=== PATIENT | female | born 1930 | race Caucasian/White ===

== ENCOUNTER 2018-01-18 13:10 | Outpatient (CLI) | payer OTHER, MEDICARE | END 2018-01-18 13:11 | disposition critical access hospital (66) | LOC: EMS 13:10 | PROVIDERS: ATTEND Surgery | DX: R07.81 Pleurodynia (principal); V47.0XXA Car driver injured in collision with fixed or stationary object in nontraffic accident, initial encounter; Y92.009 Unspecified place in unspecified non-institutional (private) residence as the place of occurrence of the external cause | CPT/HCPCS: A0425; A0429 ==

== ENCOUNTER 2018-01-18 13:43 | Emergency (ER) | payer OTHER, MEDICARE ==
[2018-01-18] MEDS ORDERED: TETANUS/DIPHTHERIA/PERTUSSIS 0.5 ML SYRINGE IM ONE (14:02)
[2018-01-18] MEDS ORDERED: ACETAMINOPHEN 325 MG TABLET PO STA (14:02)
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
--- NOTE | 2018-01-18 15:12 | XRAY Report ---
EXAM: LEFT RIB RADIOGRAPHY EXAM DATE: 01/18/2018 02:26 PM. CLINICAL HISTORY: Chest wall inj. COMPARISON: 12/16/2014. TECHNIQUE: 1 view of the chest and 2 views of the ribs. FINDINGS: Bones: No rib fracture identified. Lungs: No focal opacities. No pneumothorax. No pleural effusions. Mediastinum: Heart and mediastinal contours are within normal limits. Other: None. IMPRESSION: No rib fracture identified. [facility] Referring Provider Line: [phone] SITE ID: [id number]
[2018-01-18 15:32] VITALS: BP 187/66
== END 2018-01-18 15:32 | disposition home or self-care (01) ==
LOC: EDUNIT# → ED 13:43
DX: S20.212A Contusion of left front wall of thorax, initial encounter (principal); S61.412A Laceration without foreign body of left hand, initial encounter; S81.811A Laceration without foreign body, right lower leg, initial encounter; V57.5XXA Driver of pick-up truck or van injured in collision with fixed or stationary object in traffic accident, initial encounter; I10 Essential (primary) hypertension; E78.00 Pure hypercholesterolemia, unspecified; Z23 Encounter for immunization
CPT/HCPCS: 71101; 90471; 90715; 99283; A9270

== ENCOUNTER 2018-01-20 16:29 | Outpatient (CLI) | payer MEDICARE, OTHER | END 2018-01-20 16:30 | disposition EMS.NT | LOC: EMS 16:29 | PROVIDERS: ATTEND Surgery | DX: R07.81 Pleurodynia (principal) ==

== ENCOUNTER 2018-01-29 19:44 | Outpatient (CLI) | payer OTHER, MEDICARE | END 2018-01-29 19:45 | disposition critical access hospital (66) | LOC: EMS 19:44 | PROVIDERS: ATTEND Surgery | DX: R53.1 Weakness (principal); R07.81 Pleurodynia; M25.552 Pain in left hip; M25.562 Pain in left knee; R11.10 Vomiting, unspecified | CPT/HCPCS: A0425; A0427 ==

== ENCOUNTER 2018-01-29 20:17 | Inpatient (IN) | payer OTHER, MEDICARE ==
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
[2018-01-29] MEDS ORDERED: SODIUM CHLORIDE 0.9% 1,000 ML IV STA (20:45)
[2018-01-29 20:53] LABS: EOSINOPHILS % (AUTO) 0.2 %; WHITE BLOOD COUNT 12.2 x10^3/uL (4.8-10.8)
[2018-01-29 21:00] LABS: BASOPHILS % (AUTO) 0.8 %; HGB - HEMOGLOBIN 13.3 g/dL (12.0-16.0); MEAN CORPUSCULAR HEMOGLOBIN 30.5 pg (27.0-31.0); MEAN CORPUSCULAR HGB CONC 33.1 g/dL (32.0-36.0); MEAN CORPUSCULAR VOLUME 92.3 fL (81.0-99.0); MEAN PLATELET VOLUME 7.7 fL (7.9-10.8); MONOCYTES % (AUTO) 12.9 %; NEUTROPHILS % (AUTO) 81.1 %; PLT - PLATELET COUNT 259 10^3/uL (130-450); RED BLOOD COUNT 4.37 10^6/uL (4.20-5.40); RED CELL DISTRIBUTION WIDTH 13.7 % (12.0-15.0)
[2018-01-29 21:01] LABS: CALCIUM 8.6 mg/dL (8.5-10.3); CREATININE 0.8 mg/dL (0.4-1.0)
[2018-01-29 21:31] LABS: ABNORMAL LYMPHS % (MANUAL) 0 %
[2018-01-29 21:42] LABS: BAND NEUTROPHILS % (MANUAL) 1 %; DIFFERENTIAL COMMENT MANUAL DIFFERENTIAL; EOSINOPHILS # (MANUAL) 0.1 10^3/uL (0-0.7); LYMPHOCYTES # (MANUAL) 0.9 10^3/uL (1.5-3.5); LYMPHOCYTES % (MANUAL) 7 %; METAMYELOCYTES % (MANUAL) 1 %; MONOCYTES # (MANUAL) 1.2 10^3/uL (0.0-1.0); NEUTROPHILS # (MANUAL) 9.9 10^3/uL (1.5-6.6); NEUTROPHILS % (MANUAL) 80 %; PLATELET ESTIMATE, MANUAL NORMAL (130-450,000) (NORMAL); PLATELET MORPHOLOGY NORMAL APPEARANCE (NORMAL); RBC MORPHOLOGY (MULTIPLE) NORMAL APPEARANCE (NORMAL)
[2018-01-29 21:57] LABS: BILIRUBIN,URINE NEGATIVE (NEGATIVE); GLUCOSE, URINE (UA) NEGATIVE (NEGATIVE); KETONES,URINE (UA) NEGATIVE (NEGATIVE); LEUKOCYTE ESTERASE, URINE NEGATIVE (NEGATIVE); NITRITE,URINE NEGATIVE (NEGATIVE); OCCULT BLOOD,URINE NEGATIVE (NEGATIVE); PROTEIN,URINE TRACE mg/dL (NEGATIVE); UROBILINOGEN,URINE 4 E.U./dL (NORMAL)
[2018-01-29 21:59] LABS: CLARITY,URINE CLEAR (CLEAR)
--- NOTE | 2018-01-29 22:13 | XRAY Report ---
EXAM: CHEST RADIOGRAPHY EXAM DATE: 01/29/2018 09:28 PM. CLINICAL HISTORY: Recent rib fractures; worsening pain, dyspnea. COMPARISON: 12/16/2014 chest x-ray. TECHNIQUE: 2 views. FINDINGS: Lungs/Pleura: No focal opacities evident. No pleural effusion. No pneumothorax. Normal volumes. Mediastinum: Heart and mediastinal contours are unremarkable. Other: None. IMPRESSION: Normal 2-view chest radiography. [facility] Referring Provider Line: [phone] SITE ID: [id number]
--- NOTE | 2018-01-29 22:13 | XRAY Preliminary Report ---
Exam: XR CHEST 2 VIEW X-RAY IMPRESSION: Normal 2-view chest radiography. [facility] SITE ID: [id number]
--- NOTE | 2018-01-29 22:15 | XRAY Preliminary Report ---
Exam: XR KNEE 4 VIEW LT IMPRESSION: 1. No left knee fracture. 2. Advanced osteoarthritis. 3. Joint effusion. [facility] SITE ID: [id number]
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
[2018-01-30] MEDS ORDERED: ONDANSETRON 4 MG/2 ML VIAL IVP PRN (01:02)
[2018-01-30] MEDS ORDERED: SODIUM CHLORIDE FLUSH 0.9% 10 ML SYRINGE IVP PRN (01:02)
[2018-01-30] MEDS ORDERED: DEXTROSE 5%-0.9% NACL 1,000 ML IV SCH (02:00)
[2018-01-30] MEDS ORDERED: hydrALAZINE INJ 20 MG/ML VIAL IVP ONE (03:19)
[2018-01-30] MEDS: DEXTROSE 5%-0.9% NACL 1,000 ML IV SCH (04:13)
[2018-01-30 04:15] LABS: BASOPHILS # (AUTO) 0.1 10^3/uL (0.0-0.1); BASOPHILS % (AUTO) 0.7 %; EOSINOPHILS # (AUTO) 0.1 10^3/uL (0.0-0.7); EOSINOPHILS % (AUTO) 0.9 %; HGB - HEMOGLOBIN 13.8 g/dL (12.0-16.0); LYMPHOCYTES # (AUTO) 0.7 10^3/uL (1.5-3.5); MEAN CORPUSCULAR HEMOGLOBIN 31.5 pg (27.0-31.0); MEAN CORPUSCULAR VOLUME 92.6 fL (81.0-99.0); MEAN PLATELET VOLUME 7.4 fL (7.9-10.8); MONOCYTES # (AUTO) 1.5 10^3/uL (0.0-1.0); MONOCYTES % (AUTO) 13.1 %; NEUTROPHILS % (AUTO) 79.3 %; PLT - PLATELET COUNT 227 10^3/uL (130-450); RED BLOOD COUNT 4.39 10^6/uL (4.20-5.40); RED CELL DISTRIBUTION WIDTH 13.7 % (12.0-15.0); WHITE BLOOD COUNT 11.4 x10^3/uL (4.8-10.8)
[2018-01-30 04:28] LABS: ALBUMIN/GLOBULIN RATIO 0.8 (1.0-2.2); BILIRUBIN,TOTAL 1.1 mg/dL (0.2-1.0); CALCIUM 8.6 mg/dL (8.5-10.3); CREATININE 0.6 mg/dL (0.4-1.0); TOTAL PROTEIN 6.9 g/dL (6.7-8.2)
[2018-01-30] MEDS: amLODIPine 5 MG TABLET PO SCH ×2 (04:48→08:48)
[2018-01-30] MEDS: HYDROmorphone 0.5 MG/0.5 ML SYRINGE IVP PRN ×2 (07:33→11:30)
[2018-01-30] MEDS: IPRATROPIUM/ALBUTEROL 3 ML NEB INH SCH ×2 (07:44→19:58)
[2018-01-30] MEDS: ACETAMINOPHEN 325 MG TABLET PO PRN ×2 (08:49→20:21)
[2018-01-30] MEDS: FAMOTIDINE 20 MG TABLET PO SCH (08:49)
[2018-01-30] MEDS: ASPIRIN EC 81 MG TABLET PO SCH (08:50)
[2018-01-30] MEDS: traMADol 50 MG TABLET PO PRN ×2 (08:50→20:19)
[2018-01-30] MEDS: POLYETHYLENE GLYCOL 3350 17 GM PACKET PO SCH (08:50)
[2018-01-30] MEDS ORDERED: LOSARTAN 50 MG TABLET PO SCH (09:00)
[2018-01-30] MEDS ORDERED: NON FORMULARY MED (Losartan Potassium [Losartan Potassium] 25 MG) PO SCH (09:00)
[2018-01-30] MEDS ORDERED: SERTRALINE 50 MG TABLET PO SCH (09:00)
[2018-01-30] MEDS ORDERED: AMLODIPINE BESYLATE PO SCH (09:00)
[2018-01-30] MEDS ORDERED: CARISOPRODOL PO SCH (09:00)
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
[2018-01-30] MEDS: METOPROLOL SUCCINATE 50 MG TABLET PO SCH (09:09)
[2018-01-30] MEDS: SODIUM CHLORIDE FLUSH 0.9% 10 ML SYRINGE IVP SCH ×2 (09:11→19:28)
[2018-01-30] MEDS ORDERED: NITROGLYCERIN SL 0.4 MG TABLET SL PRN (10:58)
[2018-01-30] MEDS ORDERED: ALBUTEROL NEB 2.5 MG/3 ML INH PRN (10:58)
[2018-01-30] MEDS: SODIUM CHLORIDE 1 GM TABLET PO SCH (17:48)
[2018-01-30] MEDS ORDERED: ATORVASTATIN 10 MG TABLET PO SCH (21:00)
[2018-01-30] MEDS ORDERED: MONTELUKAST 10 MG TABLET PO SCH (21:00)
[2018-01-31] MEDS: DEXTROSE 5%-0.9% NACL 1,000 ML IV SCH (00:04)
[2018-01-31] MEDS: SODIUM CHLORIDE FLUSH 0.9% 10 ML SYRINGE IVP SCH ×2 (00:06→08:50)
[2018-01-31] MEDS: IPRATROPIUM/ALBUTEROL 3 ML NEB INH SCH ×2 (00:06→10:30)
[2018-01-31] MEDS: ACETAMINOPHEN 325 MG TABLET PO PRN (05:14)
[2018-01-31 08:27] VITALS: BP 169/66
[2018-01-31] MEDS ORDERED: HYDROmorphone 2 MG TABLET PO PRN (08:47)
[2018-01-31] MEDS: FAMOTIDINE 20 MG TABLET PO SCH (08:49)
[2018-01-31] MEDS: amLODIPine 5 MG TABLET PO SCH (08:49)
[2018-01-31] MEDS: METOPROLOL SUCCINATE 50 MG TABLET PO SCH (08:49)
[2018-01-31] MEDS: ASPIRIN EC 81 MG TABLET PO SCH (08:49)
[2018-01-31] MEDS: SODIUM CHLORIDE 1 GM TABLET PO SCH (08:50)
[2018-01-31] MEDS: POLYETHYLENE GLYCOL 3350 17 GM PACKET PO SCH (08:51)
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
[2018-01-31] MEDS ORDERED: LORazepam 2 MG/ML VIAL IVP SCH (14:04)
[2018-01-31] MEDS ORDERED: LORazepam 0.5 MG TABLET PO STA (14:45)
== END 2018-01-31 16:00 | disposition home health service (06) | DRG 948 ==
LOC: ED 20:17 → MS2 01-30 01:02
PROVIDERS: ADMIT Internal Medicine; ATTEND Internal Medicine
DX: G89.11 Acute pain due to trauma (principal); S22.42XA Multiple fractures of ribs, left side, initial encounter for closed fracture; J98.11 Atelectasis; E87.1 Hypo-osmolality and hyponatremia; R09.02 Hypoxemia; E78.5 Hyperlipidemia, unspecified; I10 Essential (primary) hypertension; K21.9 Gastro-esophageal reflux disease without esophagitis; Z96.659 Presence of unspecified artificial knee joint; R94.6 Abnormal results of thyroid function studies; R50.9 Fever, unspecified; V89.0XXA Person injured in unspecified motor-vehicle accident, nontraffic, initial encounter; Y92.008 Other place in unspecified non-institutional (private) residence as the place of occurrence of the external cause; Z79.82 Long term (current) use of aspirin; Z79.899 Other long term (current) drug therapy
CPT/HCPCS: 36415; 71046; 80048; 80053; 81001; 81003; 85025; 87040; 87086; 94640; 96360; 99284

== ENCOUNTER 2018-01-31 16:22 | Outpatient (CLI) | payer OTHER, MEDICARE | END 2018-01-31 16:23 | disposition home or self-care (01) | LOC: EMS 16:22 | PROVIDERS: ATTEND Surgery | DX: S22.42XA Multiple fractures of ribs, left side, initial encounter for closed fracture (principal); S83.005A Unspecified dislocation of left patella, initial encounter; R53.1 Weakness; V47.0XXA Car driver injured in collision with fixed or stationary object in nontraffic accident, initial encounter | CPT/HCPCS: A0425; A0428 ==

== ENCOUNTER 2018-03-23 09:24 | Outpatient (CLI) | payer OTHER, MEDICARE ==
--- NOTE | 2018-03-23 10:33 | Ultrasound Report ---
Procedure Date: 03/23/2018 Accession Number: [id number] / [id number] Procedure: US - Head or Neck Soft Tissue CPT Code: FULL RESULT: EXAM: Head or Neck Soft Tissue DATE: 03/23/2018 10:18 AM CLINICAL HISTORY: LUNG NODULE,THYROID NODULE COMPARISON: None. TECHNIQUE: Real time sonographic imaging of the thyroid was performed by the human resources advisor. Multiple sales representative canvas products static images were saved for review. FINDINGS: THYROID GLAND: Right Lobe: 4.0 x 1.5 x 1.7 cm. Heterogeneous echotexture.. Right Lobe Nodules: Numerous tiny cysts as well as a 1.7 x 1.2 x 1.9 cm cystic and solid nodule and a simple cyst measuring up to 0.8 cm. Left Lobe: 4.1 x 1.3 x 1.0 cm. Heterogeneous echotexture.. Left Lobe Nodules: 0.9 cm complex cystic and solid nodule. Isthmus: 0.4 cm AP. Isthmic Nodules: None. LYMPH NODES: No adenopathy demonstrated in the central or lateral compartment. OTHER: Vascularity of the thyroid gland by color Doppler is within normal limits.. IMPRESSION: 1. Heterogeneous normal-sized thyroid gland with subjectively normal vasculature. 2. The largest and most suspicious nodule measuring up to 1.9 cm in the right lobe of the thyroid represents a low suspicion by size and very low suspicion by sonographic features. Management recommendation is fine-needle aspiration. Management recommendations are based on 2015 [place] [employer] Management Guidelines for Adult Patients with Thyroid Nodules and Differentiated Thyroid Cancer. RADIA
== END 2018-03-23 09:25 | disposition home or self-care (01) ==
LOC: DI 09:24
PROVIDERS: ATTEND Internal Medicine
DX: E04.1 Nontoxic single thyroid nodule (principal); R91.1 Solitary pulmonary nodule
CPT/HCPCS: 76536

== ENCOUNTER 2018-03-27 08:00 | Outpatient (CLI) | payer OTHER, MEDICARE ==
[2018-03-27 19:12] LABS: CALCIUM 9.1 mg/dL (8.5-10.3); CREATININE 0.8 mg/dL (0.4-1.0)
== END 2018-03-27 08:01 | disposition home or self-care (01) ==
LOC: LAB.R 08:00
PROVIDERS: ATTEND Internal Medicine
DX: E87.1 Hypo-osmolality and hyponatremia (principal)
CPT/HCPCS: 36415; 80048

== ENCOUNTER 2018-04-26 14:16 | Outpatient (CLI) | payer MEDICARE, OTHER ==
[2018-04-26 17:35] LABS: BASOPHILS # (AUTO) 0.1 10^3/uL (0.0-0.1); BASOPHILS % (AUTO) 0.7 %; EOSINOPHILS # (AUTO) 0.3 10^3/uL (0.0-0.7); EOSINOPHILS % (AUTO) 4.1 %; HGB - HEMOGLOBIN 14.5 g/dL (12.0-16.0); LYMPHOCYTES # (AUTO) 1.2 10^3/uL (1.5-3.5); LYMPHOCYTES % (AUTO) 15.3 %; MEAN CORPUSCULAR HEMOGLOBIN 31.5 pg (27.0-31.0); MEAN CORPUSCULAR VOLUME 92.6 fL (81.0-99.0); MEAN PLATELET VOLUME 8.6 fL (7.9-10.8); MONOCYTES # (AUTO) 0.7 10^3/uL (0.0-1.0); MONOCYTES % (AUTO) 9.3 %; NEUTROPHILS # (AUTO) 5.6 10^3/uL (1.5-6.6); NEUTROPHILS % (AUTO) 70.6 %; PLT - PLATELET COUNT 254 10^3/uL (130-450); RED BLOOD COUNT 4.62 10^6/uL (4.20-5.40); RED CELL DISTRIBUTION WIDTH 14.4 % (12.0-15.0)
[2018-04-26 18:11] LABS: BUN - BLOOD UREA NITROGEN 10 mg/dL (6-20); CALCIUM 9.4 mg/dL (8.5-10.3); CARBON DIOXIDE - CO2 28 mmol/L (21-32); CHLORIDE 93 mmol/L (101-111); CREATININE 0.7 mg/dL (0.4-1.0); GFR - MDRD 79 (>89); GLUCOSE 99 mg/dL (70-100); PHOSPHORUS 3.8 mg/dL (2.5-4.6); SODIUM 129 mmol/L (135-145)
[2018-04-26 18:24] LABS: CORTISOL 12.7 ug/dL
[2018-04-26 18:27] LABS: THYROID STIMULATING HORMONE 1.92 uIU/mL (0.34-5.60)
== END 2018-04-26 14:17 | disposition home or self-care (01) ==
LOC: LAB.F 14:16
PROVIDERS: ATTEND Internal Medicine
DX: I10 Essential (primary) hypertension (principal); E87.1 Hypo-osmolality and hyponatremia; R41.3 Other amnesia
CPT/HCPCS: 36415; 80069; 81001; 81003; 82533; 82607; 83930; 83935; 84443; 84550; 85025; 87086

== ENCOUNTER 2018-04-27 10:35 | Outpatient (CLI) | payer MEDICARE, OTHER ==
[2018-04-27 17:43] LABS: BILIRUBIN,URINE NEGATIVE (NEGATIVE); GLUCOSE, URINE (UA) NEGATIVE (NEGATIVE); KETONES,URINE (UA) NEGATIVE (NEGATIVE); LEUKOCYTE ESTERASE, URINE TRACE (NEGATIVE); NITRITE,URINE NEGATIVE (NEGATIVE); OCCULT BLOOD,URINE NEGATIVE (NEGATIVE); PH,URINE 7.5 PH (5.0-7.5); PROTEIN,URINE NEGATIVE (NEGATIVE); UROBILINOGEN,URINE 0.2 (NORMAL) E.U./dL (NORMAL)
[2018-04-27 18:04] LABS: CREATININE,URINE 58.1 mg/dL; POTASSIUM,URINE 33.3 mmol/L
[2018-04-27 18:11] LABS: BACTERIA,URINE None Seen /HPF (None Seen); CLARITY,URINE CLEAR (CLEAR); RBC,URINE 0-5 /HPF (0-5); SQUAMOUS EPITHELIAL CELL,UR MOD Squamous (<= Few)
== END 2018-04-27 10:36 ==
LOC: LAB.R 10:35
PROVIDERS: ATTEND Internal Medicine
DX: I10 Essential (primary) hypertension (principal); E87.1 Hypo-osmolality and hyponatremia
CPT/HCPCS: 81001; 81003; 82570; 83935; 84133; 84300; 87086

== ENCOUNTER 2020-04-24 07:26 | Outpatient (CLI) | payer OTHER, MEDICARE ==
[2020-04-24 15:29] LABS: HGB - HEMOGLOBIN 14.9 g/dL (12.0-16.0); MEAN CORPUSCULAR HEMOGLOBIN 31.5 pg (27.0-31.0); MEAN CORPUSCULAR HGB CONC 33.3 g/dL (32.0-36.0); MEAN CORPUSCULAR VOLUME 94.7 fL (81.0-99.0); MEAN PLATELET VOLUME 10.9 fL (7.9-10.8); RED BLOOD COUNT 4.73 10^6/uL (4.20-5.40); RED CELL DISTRIBUTION WIDTH 14.4 % (12.0-15.0); WHITE BLOOD COUNT 8.2 x10^3/uL (4.8-10.8)
[2020-04-24 16:29] LABS: ALBUMIN 3.8 g/dL (3.2-5.5); CALCIUM 9.5 mg/dL (8.5-10.3); CREATININE 0.8 mg/dL (0.4-1.0); PHOSPHORUS 3.7 mg/dL (2.5-4.6)
== END 2020-04-24 07:27 | disposition home or self-care (01) ==
LOC: LAB.S 07:26
PROVIDERS: ATTEND Internal Medicine
DX: E87.1 Hypo-osmolality and hyponatremia (principal); E61.1 Iron deficiency; R06.00 Dyspnea, unspecified
CPT/HCPCS: 36415; 80069; 82533; 83540; 83930; 83935; 84466; 85027